=== PATIENT | female | born 1950 | race Caucasian/White ===

== ENCOUNTER 2019-03-19 07:44 | Day surgery (SDC) | payer MEDICARE, BC ==
[~2019-03-19 07:44] MED LIST: Lactated Ringers 1,000 ML IV SCH; Lidocaine 1%/Sod Bicarbonate in NS 8.4% 1 ML Syringe IDERM PRN; Propofol 200 MG/20 ML SDV ONE; Sodium Chloride 0.9% 10 ML Syringe FLUSH PRN; fentaNYL 100 MCG/2 ML SDV ONE
[2019-03-19] MEDS ORDERED: Midazolam 1 MG/ML 2 ML SDV ONE (08:56)
--- NOTE | 2019-03-19 08:59 | PCM.PREANE ---
Preanesthetic Assessment - Anesthesia/Transfusion/Family Hx Anesthesia History: Prior Anesthesia Without Reaction Family History of Anesthesia Reaction: No - Review of Systems General: No Symptoms Pulmonary: No Symptoms Cardiovascular: No Symptoms Gastrointestinal: Difficulty Swallowing Neurological: No Symptoms Other: Reports: None - Physical Assessment NPO Status Date: 03/18/19 NPO Status Time: 22:10 O2 Sat by Pulse Oximetry: 98 Respiratory Rate: 16 Vital Signs: Last Vital Signs Temp 36.7 C 03/19/19 08:00 Pulse 65 03/19/19 08:00 Resp 16 03/19/19 08:00 BP 146/63 H 03/19/19 08:00 Pulse Ox 98 03/19/19 08:00 Height: 1.6 m Weight: 52.617 kg ASA Class: 1 Mental Status: Alert & Oriented x3 Airway Class: Mallampati = 2 Dentition: Reports: Cullom(s), Caries Thyro-Mental Finger Breadths: 2 Mouth Opening Finger Breadths: 3 ROM/Head Extension: Full Lungs: Clear to Auscultation, Normal Respiratory Effort Cardiovascular: Regular Rate, Regular Rhythm - Allergies Allergies/Adverse Reactions: Allergies Allergy/AdvReac Type Severity Reaction Status Date / Time No Known Allergies Allergy Verified 03/19/19 08:36 - Acknowledgements Anesthesia Type Planned: MAC Pt an Appropriate Candidate for the Planned Anesthesia: Yes Alternatives and Risks of Anesthesia Discussed w Pt/Guardian: Yes Pt/Guardian Understands and Agrees with Anesthesia Plan: Yes PreAnesthesia Questionnaire HEENT History: Reports: Other (See Below) Other HEENT History: uses reading glasses Cardiovascular History: Reports: None Respiratory History: Reports: None Genitourinary History: Reports: None ATTRACTIONS ASSOCIATE History: Reports: None Musculoskeletal History: Reports: None Neurological History: Reports: None Psychiatric History: Reports: None Endocrine/Metabolic History: Reports: None Hematologic History: Reports: None Immunologic History: Reports: None Oncologic (Cancer) History: Reports: None Dermatologic History: Reports: None - Past Surgical History Head Surgeries/Procedures: Reports: None Cardiovascular Surgical History: Reports: None Respiratory Surgical History: Reports: None GI Surgical History: Reports: Colonoscopy Female Surgical History: Reports: None, Hysterectomy Male Surgical History: Reports: None Endocrine Surgical History: Reports: None Neurological Surgical History: Reports: None Musculoskeletal Surgical History: Reports: None Dermatological Surgical History: Reports: None - SUBSTANCE USE Smoking Status *Q: Former Smoker Recreational Drug Use History: No - HOME MEDS Home Medications: Home Meds Biotin 1 mg PO DAILY 03/17/19 [History] Fish Oil/Clover-3 Fatty Acids [Fish Oil 1,000 MG] 1 gm PO DAILY 03/17/19 [History ] Multivitamin [Daily Multiple Vitamin] 1 tab PO DAILY 03/17/19 [History] - CURRENT (IN HOUSE) MEDS Current Meds: Current Medications Lactated Ringer's (Ringers, Lactated) 1,000 mls @ 125 mls/hr IV ASDIRECTED ABUNDIO Stop: 03/19/19 23:00 Last Admin: 03/19/19 08:10 Dose: 125 mls/hr Lidocaine/Sodium Bicarbonate (Buffered Lidocaine 1% In Ns 8.4%) 0.25 ml IDERM ONETIME PRN PRN Reason: Prior to IV Start Stop: 03/19/19 18:00 Last Admin: 03/19/19 08:10 Dose: 0.25 ml Sodium Chloride (Saline Flush) 10 ml FLUSH ASDIRECTED PRN PRN Reason: Keep Vein Open Stop: 03/19/19 18:00 Discontinued Medications Fentanyl (Sublimaze) Confirm Administered Dose 100 mcg .ROUTE .STK-MED ONE Stop: 03/19/19 07:06 Propofol (Diprivan 20 Ml) Confirm Administered Dose 400 mg .ROUTE .STK-MED ONE Stop: 03/19/19 07:06
[2019-03-19] MEDS ORDERED: Propofol 200 MG/20 ML SDV ONE (09:53)
[2019-03-19] MEDS ORDERED: Lactated Ringers 1,000 ML ONE (10:20)
--- NOTE | 2019-03-19 10:33 | PCM48HPAN ---
Post Anesthesia Note - EVALUATION WITHIN 48HRS OF ANESTHETIC Vital Signs in Normal Range: Yes Patient Participated in Evaluation: Yes Respiratory Function Stable: Yes Airway Patent: Yes Cardiovascular Function Stable: Yes Hydration Status Stable: Yes Pain Control Satisfactory: Yes Nausea and Vomiting Control Satisfactory: Yes Mental Status Recovered: Yes Pulse Rate: 65 SaO2: 98 Resp Rate: 16 Temperature: 36.3 C Blood Pressure: 119/65
--- NOTE | 2019-03-19 10:42 | PCM.OPNOTE ---
- General Post-Op/Procedure Note Date of Surgery/Procedure: 03/19/19 Operative Procedure(s): egd with Bx and colonosocopy with bx and polypectomy Pre Op Diagnosis: positive fit test and dyphagia Primary Surgeon: Hussain Smyth EBL in mLs: 0 Complications: None Condition: Good
--- NOTE | 2019-03-20 06:51 | OR ---
DATE OF OPERATION: 03/19/2019 SURGEON: Hussain Smyth MD PREOPERATIVE DIAGNOSIS: Dysphagia. POSTOPERATIVE DIAGNOSIS: Dysphagia. OPERATION PERFORMED: Esophagogastroduodenoscopy with biopsy with dilatation of the distal esophagus with balloon dilatation with 54-[place]. FINDINGS: Some irregularity of the GE junction with slight narrowing. ANESTHESIA: The patient under IV sedation. DESCRIPTION OF PROCEDURE: The patient was taken to the endoscopy room, placed in a supine position, connected to monitoring equipment, and given IV sedation. Bite block was inserted. A video Olympus gastroscope placed in the posterior oropharynx under direct vision, threaded past the cricopharyngeus, down the esophagus, into the stomach. Stomach was insufflated, and the scope passed through the pylorus to the second portion of the duodenum. This was slowly withdrawn showing normal second portion of the duodenum, duodenal bulb, and pyloric channel. Antrum, body, cardia, and fundus of the stomach were viewed. J-maneuver was performed. Hiatus was intact. The scope withdrawn to the GE junction which was slightly irregular and thickened. The balloon was then inserted down to the channel and the distal esophagus dilated to 54[place]. Biopsies of the GE junction were then performed. The rest of the esophagus was viewed, the scope withdrawn. The patient tolerated the procedure, and IV sedation continued for colonoscopy. ESTIMATED BLOOD LOSS: MMODAL /[id number]
--- NOTE | 2019-03-20 06:52 | OR ---
DATE OF OPERATION: 03/19/2019 SURGEON: Hussain Smyth MD PREOPERATIVE DIAGNOSIS: Positve fecal immunochemical test. POSTOPERATIVE DIAGNOSIS: Positve fecal immunochemical test. OPERATION PERFORMED: Colonoscopy to cecum with polypectomy and biopsy done under intravenous sedation. FINDINGS: A diminutive polyp in the ascending colon; a flat lesion, undetermined etiology, also on the ascending colon, just adjacent to the first polyp. There are no angiodysplasias, large tumor masses, ulcerations, diverticulum, or notable hemorrhoids. DESCRIPTION OF PROCEDURE: The patient was taken to the treatment room and connected to monitoring equipment, underwent IV sedation for upper GI endoscopy. IV sedation was continued for colonoscopy. She was placed in left lateral position. Perianal area was inspected and was normal. Rectal exam showed good sphincter tone. A video Olympus colonoscope was then introduced into the rectum and threaded up without problem to the cecum, where the appendicular orifice was noted. Prep was excellent. [place] cleansing score grade A, and the scope slowly withdrawn showing the cecum, ascending colon, transverse colon, descending colon, sigmoid colon, and rectum. At the ascending colon just underneath the ileocecal valve was a diminutive polyp which was removed by cold biopsy forceps and just adjacent to that a flatter undetermined lesion which measured approximately 1 cm, which was biopsied. The patient tolerated the procedure, sent to recovery room in a stable condition. Specimen sent to pathology in a labeled container, and the patient will be followed up in the clinic. ANESTHESIA: ESTIMATED BLOOD LOSS: MMODAL /[id number]
== END 2019-03-19 11:30 | disposition home or self-care (01) ==
LOC: JD.SDS 07:44
PROVIDERS: ATTEND Surgery
DX: K22.2 Esophageal obstruction (principal); K20.9 Esophagitis, unspecified; K22.8 Other specified diseases of esophagus; D12.2 Benign neoplasm of ascending colon; Z87.891 Personal history of nicotine dependence
CPT/HCPCS: 43239; 43249; 45380; J2250; J2704; J3010; J7120

== ENCOUNTER 2024-07-24 07:12 | Day surgery (SDC) | payer MEDICARE, BC ==
[~2024-07-24 07:12] MED LIST changes: -Lactated Ringers 1,000 ML IV SCH; -Lidocaine 1%/Sod Bicarbonate in NS 8.4% 1 ML Syringe IDERM PRN; -Propofol 200 MG/20 ML SDV ONE; +Sodium Chloride 0.9% 10 ML Syringe FLUSH SCH; -fentaNYL 100 MCG/2 ML SDV ONE
[2024-07-24] MEDS: Lactated Ringers 1,000 ML IV SCH (07:45)
[2024-07-24] MEDS ORDERED: Ondansetron 4 MG/2 ML SDV IVPUSH PRN (07:48)
[2024-07-24] MEDS ORDERED: HYDROmorphone 0.5 MG/0.5 ML Syringe IVPUSH PRN (07:48)
[2024-07-24] MEDS ORDERED: fentaNYL 100 MCG/2 ML SDV IVPUSH PRN (07:48)
[2024-07-24] MEDS ORDERED: Propofol 200 MG/20 ML SDV ONE ×2 (08:10→08:36)
[2024-07-24] MEDS ORDERED: Lidocaine 2% 5 ML SDV ONE (08:11)
== END 2024-07-24 09:30 | disposition home or self-care (01) ==
LOC: JD.SDS 07:12
PROVIDERS: ATTEND Surgery
DX: Z12.11 Encounter for screening for malignant neoplasm of colon (principal); D12.4 Benign neoplasm of descending colon; K57.30 Diverticulosis of large intestine without perforation or abscess without bleeding; I10 Essential (primary) hypertension; E78.00 Pure hypercholesterolemia, unspecified; Z87.891 Personal history of nicotine dependence; Z86.010 Personal history of colon polyps; Z79.899 Other long term (current) drug therapy
CPT/HCPCS: 00811; 99100; J2704; J3490; J7120